=== PATIENT | female | born 1990 | race Caucasian/White ===

== ENCOUNTER 2020-03-10 10:51 | Emergency (ER) | payer BC, MEDICAID ==
[~2020-03-10] VITALS: Ht 162.6 cm; Wt 120.2 kg
[~2020-03-10 10:51] MED LIST: NO REPORTABLE MEDS; [UNRECOGNIZED DRUG - CODE]
--- NOTE | 2020-03-10 10:52 | NUR ---
PT BIB SELF C/O DIZZINESS STARTED THIS MORNING, PT IS AAOX4, NOT IN RESPIRATORY DISTRESS, HOOKED TO PROGRAM MANAGEMENT ANALYST, KEPT RESTED AND COMFORTABLE, WILL CONTINUE TO MONITOR.
--- NOTE | 2020-03-10 11:06 | NUR ---
AT BEDSIDE FOR EVAL.
[2020-03-10] MEDS ORDERED: MECLIZINE HCL 25 MG TABLET ONE (11:12)
--- NOTE | 2020-03-10 11:15 | NUR ---
IV LINE ESTABLISHED BLOOD DRAWN AND SENT TO LAB.
[2020-03-10 11:27] LABS: BASOPHILS # (AUTO) 0.1 /CMM (0.0-0.2); BASOPHILS % (AUTO) 0.6 % (0.0-2.0); EOSINOPHILS % (AUTO) 4.4 % (0.0-6.0); HEMATOCRIT 43 % (33-45); HEMOGLOBIN 14.3 g/dL (11.5-14.8); LYMPHOCYTES # (AUTO) 2.8 /CMM (0.8-4.8); LYMPHOCYTES % (AUTO) 32.2 % (20.0-44.0); MEAN CORPUSCULAR HGB CONC 33 g/dl (31.0-36.0); MEAN CORPUSCULAR VOLUME 91 fL (82-100); MONOCYTES # (AUTO) 0.4 /CMM (0.1-1.30); MONOCYTES % (AUTO) 4.3 % (2.0-12.0); NEUTROPHILS % (AUTO) 58.5 % (43.0-81.0); PLATELET COUNT (AUTO) 228 /CMM (150-450); RED BLOOD CELL COUNT(AUTO) 4.72 MIL/uL (4.0-5.2); WHITE BLOOD COUNT (AUTO) 8.6 K/uL (4.3-11.0)
[2020-03-10] MEDS ORDERED: IV NS 0.9% 1,000 ML BAG IV ONE (11:30)
[2020-03-10] MEDS ORDERED: MECLIZINE HCL 25 MG TABLET PO ONE (11:30)
--- NOTE | 2020-03-10 11:37 | NUR ---
urine collected and sent to lab
[2020-03-10 11:40] LABS: ALBUMIN 3.9 g/dL (3.4-5.0); BILIRUBIN,DIRECT 0.1 mg/dL (0.0-0.2); BILIRUBIN,TOTAL 0.4 mg/dL (0.2-1.0); CALCIUM, SERUM 9.2 mg/dL (8.5-10.1); CREATININE 0.9 mg/dL (0.6-1.3); POTASSIUM 4.1 mmol/L (3.5-5.1); TOTAL PROTEIN, SERUM 8.1 g/dL (6.4-8.2)
[2020-03-10 11:42] LABS: APPEARANCE,URINE Clear (CLEAR); BILIRUBIN,URINE Negative (NEGATIVE); BLOOD, URINE Negative Ery/uL (NEGATIVE); COLOR,URINE Yellow (YELLOW); KETONES,URINE Negative (NEGATIVE); LEUKOCYTE ESTERASE ,URINE Negative (NEGATIVE); NITRITE, URINE Negative (NEGATIVE); PROTEIN,URINE Negative (NEGATIVE); UGLUCOSE Negative (NEGATIVE)
[2020-03-10 11:57] LABS: BACTERIA,URINE None seen /HPF (None Seen); RBC,URINE 0-2 /HPF (0-2); SQUAMOUS EPITHELIAL CELL,UR Few /HPF (None Seen); WBC,URINE 0-2 /HPF (0-3)
--- NOTE | 2020-03-10 12:53 | NUR ---
Patient discharged to home in stable condition. Written and verbal after care instructions given. Patient verbalizes understanding of instruction.IV removed. Catheter intact and site benign. Pressure and 4x4 applied to site. No bleeding noted. Pt ambulatory with a steady gait
[2020-03-10 12:54] VITALS: BP 135/75
== END 2020-03-10 12:54 | disposition home or self-care (01) ==
LOC: ER 10:51
DX: R42 Dizziness and giddiness (principal); Z79.899 Other long term (current) drug therapy
CPT/HCPCS: 36415; 70450; 80048; 80076; 81001; 83690; 84703; 85025; 96360; 99284; J7030; J8597; 81000-TC

== ENCOUNTER 2021-06-12 16:11 | Emergency (ER) | payer BC ==
[~2021-06-12] VITALS: Ht 162.6 cm; Wt 113.4 kg
--- NOTE | 2021-06-12 16:11 | NUR ---
PT BIB SELF C/O DIFFUSE ABDOMINAL PAIN R/T BACK X 3 DAYS. PT IS AAOX4, NOT IN RESPIRATORY DISTRESS, V/S STABLE, KEPT RESTED AND COMFORTABLE. WILL CONTINUE TO MONITOR.
--- NOTE | 2021-06-12 16:55 | NUR ---
IV LINE ESTABLISHED BLOOD DRAWN AND SENT TO LAB.
[2021-06-12] MEDS ORDERED: MORPHINE SULFATE INJ 4 MG/ML DISP.SYRIN ONE (16:58)
[2021-06-12] MEDS ORDERED: ONDANSETRON HCL/PF 4 MG/2 ML VIAL ONE (16:58)
[2021-06-12] MEDS ORDERED: MORPHINE SULFATE INJ 2 MG/ML DISP.SYRIN IV ONE (17:00)
[2021-06-12] MEDS ORDERED: IV NS 0.9% 1,000 ML BAG IV ONE (17:00)
[2021-06-12] MEDS ORDERED: ONDANSETRON HCL/PF 4 MG/2 ML VIAL IVP ONE (17:00)
[2021-06-12 17:01] LABS: BASOPHILS # (AUTO) 0.1 K/uL (0.0-0.2); BASOPHILS % (AUTO) 0.7 % (0.0-2.0); EOSINOPHILS % (AUTO) 4.3 % (0.0-6.0); HEMATOCRIT 40 % (33-45); HEMOGLOBIN 13.4 g/dL (11.5-14.8); LYMPHOCYTES # (AUTO) 2.8 K/uL (0.8-4.8); LYMPHOCYTES % (AUTO) 28.1 % (20.0-44.0); MEAN CORPUSCULAR HGB CONC 33 g/dl (31.0-36.0); MEAN CORPUSCULAR VOLUME 93 fL (82-100); MONOCYTES # (AUTO) 0.6 K/uL (0.1-1.30); MONOCYTES % (AUTO) 6.4 % (2.0-12.0); NEUTROPHILS # (AUTO) 5.9 K/uL (1.8-8.9); NEUTROPHILS % (AUTO) 60.5 % (43.0-81.0); PLATELET COUNT (AUTO) 224 K/uL (150-450); RED BLOOD CELL COUNT(AUTO) 4.36 MIL/uL (4.0-5.2); WHITE BLOOD COUNT (AUTO) 9.8 K/uL (4.3-11.0)
[2021-06-12 17:31] LABS: BILIRUBIN,DIRECT 0.1 mg/dL (0.0-0.2); BILIRUBIN,TOTAL 0.3 mg/dL (0.2-1.0); CALCIUM, SERUM 8.9 mg/dL (8.5-10.1); POTASSIUM 3.6 mmol/L (3.5-5.1); TOTAL PROTEIN, SERUM 7.6 g/dL (6.4-8.2)
[2021-06-12 17:34] LABS: BILIRUBIN,URINE NEGATIVE (NEGATIVE); COLOR,URINE YELLOW (YELLOW); LEUKOCYTE ESTERASE ,URINE NEGATIVE (NEGATIVE); NITRITE, URINE NEGATIVE (NEGATIVE); PROTEIN,URINE NEGATIVE (NEGATIVE); UGLUCOSE NEGATIVE (NEGATIVE)
[2021-06-12 17:46] LABS: BACTERIA,URINE RARE /HPF (None Seen); RBC,URINE 0-2 /HPF (0-2); WBC,URINE 0-2 /HPF (0-3)
[2021-06-12] MEDS ORDERED: ONDA4TAB5 PO (18:13)
[2021-06-12] MEDS ORDERED: TRAM50TA2 PO (18:13)
[2021-06-12] MEDS ORDERED: IBUP-1955 PO (18:13)
[2021-06-12 18:27] VITALS: BP 128/76
== END 2021-06-12 18:28 | disposition home or self-care (01) ==
LOC: ER 16:17
DX: K80.50 Calculus of bile duct without cholangitis or cholecystitis without obstruction (principal); E66.9 Obesity, unspecified; Z68.41 Body mass index [BMI] 40.0-44.9, adult; R19.7 Diarrhea, unspecified
CPT/HCPCS: 36415; 76705; 80048; 80076; 81001; 83690; 84703; 85025; 96361; 96374; 96375; 99284; J2270; J2405; J7030

== ENCOUNTER 2022-01-24 17:12 | Emergency (ER) | payer BC, MEDICAID ==
[~2022-01-24] VITALS: Ht 162.6 cm; Wt 115.2 kg
[~2022-01-24 17:12] MED LIST changes: +IBUP-1955 PO; +ONDA4TAB5 PO; +TRAM50TA2 PO
[2022-01-24 17:19] VITALS: BP 106/64
[2022-01-24] MEDS ORDERED: SULF1TAB48 PO ×2 (17:33→17:34)
[2022-01-24] MEDS ORDERED: LOPE2CAP40 PO (17:34)
--- NOTE | 2022-01-24 18:18 | NUR ---
Patient discharged to home in stable condition. Written and verbal after care instructions given. Patient verbalizes understanding of instruction.
== END 2022-01-24 18:18 | disposition home or self-care (01) ==
LOC: ER 17:14
DX: O26.892 Other specified pregnancy related conditions, second trimester (principal); R19.7 Diarrhea, unspecified; Z79.1 Long term (current) use of non-steroidal anti-inflammatories (NSAID); Z79.899 Other long term (current) drug therapy; Z3A.20 20 weeks gestation of pregnancy

== ENCOUNTER 2024-04-03 23:28 | Emergency (ER) | payer MEDICAID ==
[~2024-04-03] VITALS: Ht 162.6 cm; Wt 85.7 kg
[~2024-04-03 23:28] MED LIST changes: +LOPE2CAP40 PO; +SULF1TAB48 PO
[2024-04-04] MEDS: MINERAL OIL 133 ML (PYXIS) 1 EA ENEMA RC ONE (01:41)
[2024-04-04] MEDS ORDERED: ONDANSETRON 4 MG TAB.RAPDIS ONE (02:17)
[2024-04-04] MEDS: ONDANSETRON 4 MG TAB.RAPDIS PO ONE (02:20)
[2024-04-04 02:49] VITALS: BP 130/68; TEMP 98; O2SAT 99
== END 2024-04-04 02:49 | disposition home or self-care (01) ==
LOC: ER 23:33
DX: K59.00 Constipation, unspecified (principal)
CPT/HCPCS: 99284; Q0162